=== PATIENT | male | born 1975 | race Two or more races ===

== ENCOUNTER → 2018-06-26 | Outpatient (CLI) | payer MEDICAID | LOC: FIMAGING 16:01 | PROVIDERS: ATTEND Internal Medicine | DX: R07.9 Chest pain, unspecified (principal); F41.9 Anxiety disorder, unspecified; Z87.891 Personal history of nicotine dependence; M41.85 Other forms of scoliosis, thoracolumbar region ==

== ENCOUNTER 2018-07-18 12:58 | Inpatient (IN) | payer MEDICAID, OTHER ==
--- NOTE | 2018-07-18 13:28 | EDPHY ---
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 Denies suicidal or homicidal ideation. Denies self-injurious behavior. Denies burning cutting or similar behavior. PRIMARY CARE PROVIDER: REVIEW OF SYSTEMS: 10 systems reviewed and negative with the exception of the elements mentioned in the history of present illness PAST MEDICAL & SURGICAL HISTORY: Schizophrenia SOCIAL HISTORY: Homeless PHYSICAL EXAM (Prior to examination, patient consented to physical exam, hands were washed and my usual and customary physical exam procedures followed) 1) GENERAL: poorly kept foul smelling, alert and oriented. Appears to be in no acute distress. 2) HEAD: Normocephalic, atraumatic 3) HEENT: Pupils equal, round, reactive to light bilaterally. Sclera anicteric. [ 4) NECK: Full range of motion, no meningeal signs. 5) LUNGS: Clear auscultation bilaterally, no wheezes, no rhonchi, no retractions. 6) HEART: Regular rate and rhythm, no murmur, no heave, no gallop. 7) ABDOMEN: No guarding, no rebound, no focal tenderness, 8) MUSCULOSKELETAL: Moving all extremities, no focal areas of tenderness, no obvious trauma. No peripheral edema or discoloration. 9) BACK: No obvious trauma, no visual or palpable abnormality.] 10) SKIN: No rash, no petechiae. 11) Psychiatric: Patient is oriented X 3, there is no agitation. DIFFERENTIAL DIAGNOSIS: In no particular order including but not limited to suicidal ideation, homicidal ideation, psychosis, lorena, gravely disabled (Loli Decker) Constitutional: Initial Vital Signs Temperature (C) 36.6 C 07/18/18 13:02 Heart Rate 107 H 07/18/18 13:02 Respiratory Rate 18 07/18/18 13:02 Blood Pressure 167/96 H 07/18/18 13:02 O2 Sat (%) 98 07/18/18 13:02 O2 Delivery Mode Room Air Allergies/Adverse Reactions: No Known Allergies Allergy (Unverified 07/18/18 13:08) Medical Decision Making ED Course/Re-evaluation: The patient was evaluated and managed by the physician's water quality assistant. My cosignature indicates that I reviewed the chart and I agree with the findings and plan of care as documented. I am the secondary supervising physician. ( Yoly Aceves) 1:28 p.m.: Patient is on an M1 hold. Will obtain laboratory studies and consult with mental health production expert. I saw this patient independently based on established practice protocols. Care of patient under supervision of secondary supervising physician Dr Aceves. 4:50 p.m.: Patient has been accepted for admission admitting physician Dr. Chopra, 3 [facility]. EMTALA paperwork completed. (Loli Decker) - Data Points Laboratory Results: Laboratory Results 07/18/18 13:15 07/18/18 13:15 07/18/18 07/18/18 07/18/18 13:15 13:15 12:30 WBC 8.34 10^3/uL 10^3/uL (3.80-9.50) RBC 5.92 10^6/uL 10^6/uL (4.40-6.38) Hgb 19.1 g/dL H g/dL (13.7-17.5) Hct 54.1 % H % (40.0-51.0) MCV 91.4 fL fL (81.5-99.8) MCH 32.3 pg pg (27.9-34.1) MCHC 35.3 g/dL g/dL (32.4-36.7) RDW 11.7 % % (11.5-15.2) Plt Count 372 10^3/uL 10^3/uL (150-400) MPV 10.5 fL fL (8.7-11.7) Neut % (Auto) 69.1 % % (39.3-74.2) Lymph % (Auto) 22.4 % % (15.0-45.0) Rogers % (Auto) 7.3 % % (4.5-13.0) Eos % (Auto) 0.4 % L % (0.6-7.6) Baso % (Auto) 0.4 % % (0.3-1.7) Nucleat RBC Rel Count 0.0 % % (0.0-0.2) Absolute Neuts (auto) 5.77 10^3/uL 10^3/uL (1.70-6.50) Absolute Lymphs (auto) 1.87 10^3/uL 10^3/uL (1.00-3.00) Absolute Monos (auto) 0.61 10^3/uL 10^3/uL (0.30-0.80) Absolute Eos (auto) 0.03 10^3/uL 10^3/uL (0.03-0.40) Absolute Basos (auto) 0.03 10^3/uL 10^3/uL (0.02-0.10) Absolute Nucleated RBC 0.00 10^3/uL 10^3/uL (0-0.01) Immature Gran % 0.4 % % (0.0-1.1) Immature Gran # 0.03 10^3/uL 10^3/uL (0.00-0.10) Sodium 141 mEq/L mEq/L (135-145) Potassium 3.7 mEq/L mEq/L (3.3-5.0) Chloride 97 mEq/L mEq/L (97-110) Carbon Dioxide 31 mEq/l mEq/l (22-31) Anion Gap 13 mEq/L mEq/L (8-16) BUN 13 mg/dL mg/dL (7-23) Creatinine 0.8 mg/dL mg/dL (0.7-1.3) Estimated GFR > 60 Glucose 49 mg/dL L mg/dL (70-100) Calcium 9.9 mg/dL mg/dL (8.5-10.4) Salicylates < 1.0 mg/dL L mg/dL (2.0-20.0) Urine Opiates Screen NEGATIVE (NEGATIVE) Acetaminophen < 10 mcg/mL L mcg/mL (10-30) Urine Barbiturates NEGATIVE (NEGATIVE) Ur Phencyclidine Scrn NEGATIVE (NEGATIVE) Ur Amphetamine Screen NEGATIVE (NEGATIVE) U Benzodiazepines Scrn NEGATIVE (NEGATIVE) Urine Cocaine Screen NEGATIVE (NEGATIVE) U Marijuana (THC) Screen NEGATIVE (NEGATIVE) Ethyl Alcohol < 10 mg/dL mg/dL (0-10) Departure - Departure Disposition: [facility] IP Clinical Impression: Schizophrenia Condition: Fair Referrals: Urvashi Soto MD [Primary Care Provider] - As per Instructions
[2018-07-18 13:56] LABS: PLATELET COUNT 372 10^3/uL (150-400)
--- NOTE | 2018-07-18 16:37 | ASMTTCLDSP ---
TLC Discharge Disposition Disposition: Answers: Admit Disposition Notes: Notes: In consultation with [facility] ED physician, Les Whitehead MD and on-call psychiatrist, Joni Chopra MD, both concurred that pt appears to meet 27-65 criteria requiring psychiatric hospitalization as pt appears to be gravely disabled due to a mental illness condition. Was patient given the Answers: Yes Inpatient Behavioral Health Prohibited Belongings List while in the ED? Date Signed: 07/18/2018 04:36 PM Electronically Signed By:Ozzy Farfan
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
[2018-07-18] MEDS ORDERED: MELATONIN 3 MG TAB PO PRN (21:00)
[2018-07-18] MEDS ORDERED: ACETAMINOPHEN 325 MG TAB PO PRN (21:00)
[2018-07-18] MEDS ORDERED: MAGNESIUM HYDROXIDE 30 ML UDCUP PO PRN (21:00)
[2018-07-18] MEDS ORDERED: LORazepam 0.5 MG TAB PO PRN (21:00)
[2018-07-18] MEDS ORDERED: OLANZapine DISINTEGR 5 MG TAB PO PRN (21:00)
[2018-07-18] MEDS ORDERED: MAG HYDROX/AL HYDROX/SIMETH 30 ML UDCUP PO PRN (21:00)
[2018-07-18] MEDS: NICOTINE 21 MG/24 HR PATCH TD SCH (21:29)
[2018-07-19] MEDS: NICOTINE 21 MG/24 HR PATCH TD SCH (08:57)
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
--- NOTE | 2018-07-19 13:07 | ASMTCMCOM ---
CM Note CM Note Notes: Pt. and CC completed MTP, signed and placed in chart. Pt. reports having a court date "in a couple months". Pt. declined to elaborate on why he is going to court. Pt. stated he drinks alcohol "not that frequently", adding it calms him down. Pt. reports smoking THC "pretty frequently, but not everyday". Pt. denied SI, HI, AVH and paranoia. Pt. reports his last hospitalization being 15 years ago at [facility]. Pt. stated he couldn't remember his diagnosis and was unable to name any helpful treatments or medications. Pt. presents as alert, anxious, pressured speech, appearing delayed at times, guarded, and with poor eye contact. Staff report pt. sleeping 9 hours. Pt. rated his SI a 0/10 with RN. Pt.'s M1 hold will on 07/21/18 at 1200. Date Signed: 07/19/2018 01:06 PM Electronically Signed By:Bing Chun
--- NOTE | 2018-07-19 23:51 | BAPA ---
DATE OF SERVICE: 07/19/2018 CHIEF COMPLAINT: "I live alone, I've been feeling sick like I'm dying, pain in my arms, legs, back, stressed...near from exposure to carpal tunnel...like having heart attack...this has been going on for 4 years, worse recently..." HISTORY OF PRESENT ILLNESS: The patient is a 43-year-old male with a history of schizophrenia, brought in to the [facility] emergency department by police on an M1 hold for grave disability. He was found to be in a paranoid delusional state with poor self-care and his been recently homeless. His thought patterns were felt to be tangential and disorganized, but he denied suicidal or homicidal thoughts. He is open with [facility], but has not been compliant with followup. He was reportedly seen on 02/04 for a psychiatric evaluation, prescribed Zyprexa, but did not return for followup. Records also indicate the patient was prescribed Seroquel and gabapentin by Dr. Carver in May 2018, but again apparently has been noncompliant. Apparently , he presented to [facility] requesting to resume medications for anxiety and paranoia , also hallucinations, lacking insight into his reported history of schizophrenia, as he attributed symptoms to excessive use of cannabis, caffeine , and nicotine. It was reported that he is seeking treatment at encouragement by his parents to resume psychotropic medication since more recently his behaviors have resulted in interactions with the legal system and homelessness. On interview, the patient was notably with disorganized thoughts. 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 I've been terrorized and almost killed, almost run over by cars, almost suicidal". 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 He attributed this all to caffeine use, cigarettes 1 pack per day and occasional alcohol use, "but not very much". States he smokes a lot of marijuana but less in the past month since evicted and homeless. He reports not feeling terrorized or harassed here in the hospital. He denied feeling depressed, denied hopeless, helpless, worthless feelings or any suicidality. He reports sleep has been fine, with no decreased need for sleep. Concentration is "acceptable when I'm doing something" but "decreased recently with stress, high temperatures, and homelessness". Thinks he rather has "anger management problems, with angry self-talk...I think my self-talk was causing problems with the police...weird Internet problems or self-talk problems causing physical injury...that may be related to concentration in the car, or weird Internet or carpal tunnel." When asked for clarification, he states, when he is in his car on a long drive, his concentration is affected because he thinks he is being injured in the car by the "weird Internet or carpal tunnel." Physical injuries of chest, arm, leg, and back pains. Then he wondered whether marijuana "may have caused me to be lobotomized by it, or the stress or social isolation." He denies experiencing racing thoughts, but does report having easy irritability. Not sure if experiencing auditory hallucinations because of so many sounds around him and living in setting where there have been many sounds and distractions. Noted his "self-talk" caused problems with the police, admitting experiencing things like license plates communicating with him. Not clarified if this was hallucination or referential thinking. When he drank alcohol, which he noted was infrequent, it did help calm him. Regarding current hospitalization, he said he would not mind something sedating , but also requested a medication that would come in an injectable form like he used to be on, stating his parents told him they would continue to help support him if they knew he was compliant with taking his medication. Therefore, he did request Risperdal or something newer. Apparently recently was charged with harassment. He did not clearly volunteer or endorse auditory hallucinations, but did indicate "angry self-talk" may have caused some problems. PAST PSYCHIATRIC HISTORY: Per records, at age 27, "had drug or unemployment breakdown" which led to him getting into "a lot of trouble, overdose on caffeine , alcohol, nicotine, had a violent incident in a rental unit." This occurred in [place], he was evicted and returned to live with parents and they got him into mental health treatment, possibly hospitalized psychiatrically once in [place]. He has been hospitalized 2-3 times in [place] including [facility] in 2003 and in [place]. He reports being in [facility] for 3 months, worked with Dr. Pritchett and was on court-ordered Risperdal injection, he recalls 37.5 mg. Also had been on Clozaril in the past. Continued on Risperdal injection for approximately 10 years, then about 5 years ago discontinued medications. Has been off medication from around 2012 to 2016, and since then has been prescribed medications but has not been compliant. Has been seen at [facility]. Records note Lana Rogel prescribed Zyprexa 10 mg in 02/04. (Unclear if this was 2016 or a few months ago). Also Dr. Zee Carver on 06/10/2018 prescribed gabapentin 300 mg b.i.d. for anxiety and to curb substance cravings, and Seroquel 200 mg q.h.sd . He has carried a diagnosis of schizophrenia, cannabis use disorder, severe, and tobacco use disorder, mild. PRIOR SAFETY HISTORY: Denied history of suicide attempts, however, was suicidal at age 27 after which he first entered psychiatric treatment. Regarding danger to others, the patient seems to have a history of recent assault charge and history of harassment charges, which seem related to psychiatric decompensation. Also with history of arrest due to harassment charges prior to admission to [facility]. NO KNOWN DRUG ALLERGIES PAST MEDICAL HISTORY: Possibly hypertension. On no medications. Patient denied any history of seizures or traumatic brain injury. Denied history of being a victim of any assault or trauma. He does report several current physical complaints, as noted in history above, but has been seen and cleared by hospitalist prior to admission, and did not appear in physical distress. SUBSTANCE USE HISTORY: Reports excess caffeine use, and nicotine use smoking 1 pack per day cigarettes. Started marijuana use in college at age 21, uses regularly, daily, but less since homeless. Occasional alcohol. In [facility] evaluation, he reported drinking as much as six 32 ounces of caffeine per day. , and also stated alcohol brings him down from caffeine and cigarettes. Cannabis, note, being started at age 21. Denies any other forms of cannabis except smoking. Denied any history of substance use treatment. LEGAL HISTORY: Evicted from his housing about 1 month ago. He reports getting into a fight with his neighbor "while high on coffee" and has upcoming court for assault charge. Also reports in the past he has been arrested for harassment and talked of getting into altercations on [employer] and his place of residence, which he related to excessive tobacco and caffeine use. SOCIAL HISTORY: Per [facility] evaluation, he is from [place] and has 1 brother. Parents are and reside in [place]. He reports attending college at [employer] and initially indicated he did not graduate because of excessive use of cigarettes, nicotine, and marijuana, reporting he failed out. When asked about [facility] records noting he had a degree in biology, he admitted this was true but never worked in the field. 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 Seems this was when stable on medications. His parents have been supportive and have been helping him financially. Has reportedly applied for disability. He has been in [place] for at least 15 years following graduation from college No known drug allergies. MENTAL STATUS EXAM: The patient was male appearing stated age. Cooperative with interview, engaged, polite, sitting throughout interview with normal psychomotor activity. Hair was somewhat disheveled. He had some facial hair. Dressed in hospital gowns. Fair eye contact while talking, but looking down and closing eyes when being asked a question or talked to, as if in deep concentration or to avoid outside distractions to maintain concentration on questions being asked. Speech was rapid, but not pressured. He was interruptible. Speech volume was normal and he was articulate. Mood was "doing better since I was evicted and left that place," presently "happy to have a convalescence." Affect was restricted in range, seeming more perplexed and with mild anxiety as he described his recent stressors and difficulties as noted. Thought processes were disorganized, perseverative, illogical at times, and seeming he was often attempting to make sense of his current predicament. Somatic complaints which seemed of a delusional quality. Inconsistencies in his history seemed more related to disorganized thoughts rather than deliberate. He alluded to having experienced auditory hallucinations in the past and was not quite sure if he still had such experiences or if it was related to a disruptive living setting or excessive caffeine and cigarette use. He also endorsed recently experiencing license plates communicating to him, and paranoia about police cars, fire trucks, loud noises, and feeling tortured daily in his place of residence. He denied any thought insertion or thought withdrawal. Not currently experiencing any ideas of reference, did not appear to be responding to internal stimuli. He denied current auditory and visual hallucinations. He expressed eagerness to start on medication, which came in an injectable form, but was then also somewhat indecisive. Insight was impaired although he recognizes need for treatment. Judgment impaired. Cognition was conversationally intact although not formally tested. He was alert and oriented x3. IMPRESSION: A 43-year-old male with a history of schizophrenia and THC use. It seems he has been declining gradually over the past few years since he has been off injectable psychotropic medication. More recently his symptoms and behaviors have resulted in increased conflicts within the community and increased police encounters resulting in recent legal charges, and eviction and he is now homeless. He seems to have disorganized thoughts and alludes to experiencing hallucinations and referential thinking. Chronic cannabis use and reported excessive caffeine use contributing to exacerbation of his underlying mental illness, disorganized thoughts, paranoia, and apparent somatic delusions.. History indicates a similar presentation prior to his first psychiatric hospitalization 15 years ago which required prolonged hospitalization and court-ordered medications in injectable form, after which he remained stable for many years until 2013 when off medication and with reported gradual decline in functioning since. It seems he presented for mental health treatment at urging of his parents, who have been supporting him and encouraging him to resume psychotropic medications in injectable form to ensure compliance. The patient reports being willing to do this. DIAGNOSES: Schizophrenia, acute exacerbation; cannabis use disorder, severe; tobacco use disorder, unspecified; caffeine use disorder, unspecified. Rule out schizoaffective disorder, rule out substance induced psychosis. Homeless, unemployed, little to no psychosocial supports. PLAN OF TREATMENT: 1. Continue on M1 hold for grave disability. Presently reports willing to stay voluntarily. However, does have a history of treatment noncompliance over past year with attempts to reengage in mental health treatment, also disorganized thoughts would be concerning for his ability to remain in voluntary treatment until stabilized. Would consider placement on short-term certification for these reasons. Presently willing to reengage in mental health treatment due to legal and parental pressures. 2. Discussed medication options with the patient. He does report history of Risperdal Consta 37.5 mg as he recalls for 10+ years and apparently was stable on this. He asked if other injectable options were available for different medications. Briefly reviewed other options including Invega and Abilify. Patient willing to try Abilify and will be started on low dose to avoid risk of side effects of akathisia, 2 mg p.o. daily and then plan increase quickly as tolerated to more therapeutic range and monitor for side effects. We will try to obtain more collateral information from parents and [facility]. 3. Monitor for any objective signs of physical illness, pain. Reports multiple complaints but did not clinically appear in any distress. Also follow blood pressure as noted with hypertension. Unclear if related to stress and caffeine or primary hypertension. Patient also mentions carpal tunnel, RAMON inhibitor, back pain, neck pain, arm and leg pains, chest pains, as related to stress, anxiety, caffeine, police, etc. Will monitor and assess and treat as indicated with hospitalist consult also if needed. 4. Substance use. Continue to educate on risks of substance use, primarily marijuana and its adverse effects on mental health and psychosis, as well as caffeine on anxiety, insomnia, etc. The patient denies any substance cravings at this time. He does express some insight into excessive use and is accepting of a nicotine patch and has p.r.n. lorazepam available. Monitor for any substance withdrawal or cravings. 5. Establish with outpatient treatment following discharge with [facility] for outpatient therapy and medication management. 6. Encourage participation in group therapies and individual and treatment planning sessions. Case Management to assist with disposition options, and housing options, including perhaps discharge to structured treatment facility until more consistently stable before transitioning back into the community if indicated. Parents may also be a resource as they have been supportive in past. Also explore legal issues and charges as his concern about legal issues have been stressful for him. 7. The patient consistently denies any thoughts to harm self or others. Will continue on safety precautions but no indication to continue to implement any suicide or assault precautions at this time. /[id number]/MODL MTDD
--- NOTE | 2018-07-20 08:50 | PDMN ---
Medical Necessity Medical necessity: Pt meets IP criteria per & MYKE B-014-IP; est los > 2mn for eval/tx of acute schizophrenia exacerbation; pt gravely disabled & on M1 hold; admit for further monitoring, safety, med management & stabilization; hx homelessness; per H&P & order 07/19/18
[2018-07-20] MEDS: NICOTINE 21 MG/24 HR PATCH TD SCH ×2 (08:58→13:59)
[2018-07-20] MEDS ORDERED: ARIPiprazole 2 MG TAB PO SCH ×2 (09:00→15:30)
--- NOTE | 2018-07-20 11:38 | SOAPPROG ---
SOAP Progress Note Assessment/Plan: Assessment: 43yo with hx szp and thc, noncompliance with treatment, and exacerbation of sxs resulting in recent homelessness and legal charges 07/20/18 15:18 slept 9.5hr. Note pt more isolative today, remaining in room. Room with w water over bathroom floor, clothes strewn on floor. cooperative, good eye contact, brief responses to questions. seems a bit more guarded. mood "fine" affect restricted. thoughts with goal directed responses. denied current AH. denied SI. Noted in hallway smiling to self with head down as walking to room, ?internal preoccupation. PLAN: Pt states no s/e to low dose Abilify this AM. Accepts offer for increase, even taking another 2mg this afternoon and then increase to 5mg qam start tomorrow. briefly reviewed metabolic and extrapyramidal risks with pt who expressed understanding and willingness to continue with treatment. Still interested in long-acting injectable. Has not allowed FARHAD to parents. Presented to hosp apparently at encouragement of parents who support him financially, and have encouraged the [facility] for compliance, may be a conditional arrangement to continue their support. need to explore this. Informed his M-1 would tomorrow and I am inclined to place on [facility]. Pt reports he was on this at [facility] 15 yrs ago and was there for 3 months. Estimated stay would be about 7-10days, and pt reports he has no problems staying voluntary if his stay here was "that short" (comparing to [place]). Again asks if okay to stay voluntarily. In this case, will defer to primary team tomorrow, also pending collateral from family. Objective: Vital Signs Temp Pulse Resp BP Pulse Ox 36.6 C 76 14 113/67 97 07/20/18 06:00 07/20/18 06:00 07/20/18 06:00 07/20/18 06:00 07/20/18 06:00 - Pending Discharge Pending Discharge Within 24 Hours: No Pending Discharge Within 48 Hours: No ICD10 Worksheet Patient Problems: Problems Problem Status Onset Schizophrenia Acute
[2018-07-21] MEDS: NICOTINE 21 MG/24 HR PATCH TD SCH (08:38)
--- NOTE | 2018-07-21 08:55 | SOAPPROG ---
SOAP Progress Note Assessment/Plan: Assessment: Bipolar Disorder, severe, current lorena, with mood congruent psychotic features. Cannabis Use Disorder, Severe. Non-adherence to medical treatment. Nicotine dependence with withdrawal. Slight improvement noted. (see subjective/ objective note). Patient is not safe to discharge at this time as patient continues to exhibit signs of lorena, and express lorena symptoms. Patient requires continued inpatient care because of current acute lorena, and requires inpatient level of care to stabilize in order to no longer be gravely disabled due to mental illness. Patient could benefit from continued inpatient hospitalization for crisis stabilization, safety, and medication evaluation. Patient could benefit from KAUFFMAN as patient has history of non-adherence to oral medications. KAUFFMAN to be administered on . Plan: (1) Psychotropic medications: After reviewing options, risks, and benefits patient agrees to continue current medications and agrees to increase Abilify to 10 mg po QD and Abilify Maintenna 400 mg IM on . No medication changes at this time as more time is needed to determine ongoing tolerability and efficacy. Plan is to continue to observe patient for response and side effects from medications, and ongoing monitoring and evaluation. (2) Review with patient informed consent and recommendations for psychotropic medication treatment listed below (3) Labs: A1c, liver function, fasting lipid panel (4) Therapy: continue milieu and group therapy (5) Further investigation including gathering information from patients relatives and review of past case records to inform treatment plan. (6) Safety/Wellness plan and follow-up outpatient appointments to be established prior to discharge. Next steps are for patient to meet with manager critical care to plan a safe discharge plan and establish outpatient services for ongoing treatment. (7) Confer with inpatient treatment team regarding treatment plan. (8) Legal status: M1, to sign in when M1 expires (9) Consider discharge on Saturday if patient is in stable condition, safe, and has a safe discharge plan. (10) Substance abuse intervention: Cannabis PSYCHOTROPIC MEDICATION TREATMENT INFORMED CONSENT and RECOMMENDATIONS: Review nature of condition, diagnosis, and prognosis. Review nature and purpose of psychotropic medication treatment. Review type of psychotropic medications being ordered. Review risk and benefits of psychotropic medication treatment. Review probable length of time patient will need to take medications. Review risk and benefits of not undergoing psychotropic medication treatment. Review alternative treatments to psychotropic medications. Review psychotropic medications contraindications, drug-drug interactions, side effects, and importance of reporting any side effects to a psychiatric provider or nurse during inpatient hospitalization, and upon discharge to patients psychiatric outpatient provider, primary care provider, or other health housekeeper child care. Review importance of asking a nurse, psychiatric provider, or primary care provider any questions or problems concerning the psychotropic medications. Verify patient understands the information that has been provided, and understands, accepts, and agrees to psychotropic medications. Review patients safety plan and importance of patient to report to staff while hospitalized if patient is ever a danger to self/others, or unable to care for self, and upon discharge, the importance for patient to contact [facility] or [facility], or go to the nearest emergency room, if patient is ever a danger to self/others, or unable to care for self. Recommend that upon discharge patient establish medication management treatment with a psychiatric provider, establishes routine therapy appointments, and follow-up with primary care provider. Verify patient understands and agrees to these recommendations. 07/21/18 09:00 Subjective: Following up with patient for evaluation of lorena, psychosis, and safety. Patient reports, "Doing well, doing great actually. Yes, here because just think I probably smoke too many cigarettes and drink too much coffee. My parents want me to start a long acting medication, and I am okay with that, I guess. I have been on medications in the past for bipolar." Patient expresses the following psychiatric symptoms racing thoughts, pressured to keep talking. Patient reports taking medications as prescribed, and describes response to medications as good. Patient does not report undesirable side effects from the medications, and agrees to continue current medications. Patient reports appetite as good, and reports eating all meals. Patient describes getting 8 hours of sleep. Patient agrees to Abilify 10 mg po QD and Abilify Maintenna to be administered on . Objective: Vital Signs Temp Pulse Resp BP Pulse Ox 36.7 C 66 16 105/62 96 07/21/18 06:00 07/21/18 06:00 07/21/18 06:00 07/21/18 06:00 07/21/18 06:00 NURSING REPORT: Consulted with nursing for update on patients progress in treatment. Nurses report patient is engaged in treatment, is attending groups, slept 8 hours, expresses the following psychiatric symptoms: pressure to keep talking, racing thoughts; exhibits the following psychiatric symptoms: hypertalkative, hyperactivity, tangential; is eating all meals, is agreeable to medications and taking as prescribed with no report of side effects, with no s/ s of EPS/akathisia, and denies SI/HI, denies A/V hallucinations, and denies delusions. WEARING APPAREL SHAKER UPDATE: establishing discharge plan with [facility] for follow-up after discharge. unit coordinator reports patient's OP psychiatrist had planned to begin Abilify Maintenna 400 mg IM KAUFFMAN prior to patient's decompensation due to non-adherence to oral medications that led to this hospitalization. MSE: The patient is a well-nourished male looking stated chronological age. Attire is appropriate and dress is casual and is neat. Grooming status is appropriate and neat. Ambulation is independent. Gait is normal and coordinated. Posture is normal and relaxed. Eye contact is appropriate, and adequate. Motor activity is appropriate with purposeful, organized, coordinated movements; with no involuntary movements. Attitude is cooperative and friendly. Patient appears distractible and does not relate well to this interviewer. Language production is spontaneous. Rate if pressured and non- stop, rhythm is fast, and volume is loud; amount is hypertalkative. Patient difficult to interrupt and interrupts this ENGINEERING SUPERVISOR during interview. Articulation is clear. Patient reports mood as okay with incongruent and expansive affect. Patients thought process is non-linear and illogical, with loose associations, tangential thought. Associations are loose. Patient does not report suicidal/ homicidal thoughts, ideas, or plans. Patient denies auditory, visual hallucinations. Patient denies delusions. Patient does not appear to be attending to internal stimuli. Patients attention and concentration are poor. Patient is oriented to person, place, time, and situation. Patients insight is poor. Patients judgment is poor. No evidence of gross cognitive dysfunction at any point during the interview. No evidence of apparent dysfunction in recent or remote memory. SUBSTANCE ABUSE BRIEF INTERVENTION: Brief intervention regarding the risks of cannabis abuse is provided to patient with goal to reduce the risk of harm that could result from the continued use of methamphetamine and cannabis, with the general aim to investigate the problem, raise awareness of problem, develop a solution with the patient, recommend a specific change or activity, and motivate the patient toward change. Assess substance abuse behavior and give supportive advice about harm reduction, recommend a reduction in hazardous/at- risk consumption patterns, and facilitate referrals for additional specialized treatment with primary care provider. Intermediate goal is for the patient to quit use and attend NA meetings and OP substance abuse treatment. Intervention focus on intermediate goals to allow for more immediate success in the treatment process to keep the patient motivated. Review following with patient : Cannabis use risks: Short-term use: impaired short-term memory, impaired motor coordination, altered judgement, in high doses paranoia and psychosis. Long-term use addiction, diminished life satisfaction and achievement, symptoms of chronic bronchitis, and increased risk of chronic psychosis disorders if predisposition to such disorders. In withdrawal anger, aggression irritability , anxiety and nervousness, decreased appetite or weight loss, restlessness, and sleep difficulties with strange dreams. - Time Spent With Patient Time Spent With Patient: 15 minutes, met with patient individually. - Pending Discharge Pending Discharge Within 24 Hours: No Pending Discharge Within 48 Hours: No ICD10 Worksheet Patient Problems: Problems Problem Status Onset Schizophrenia Acute
[2018-07-21] MEDS ORDERED: ARIPiprazole 2 MG TAB PO SCH ×2 (09:00)
--- NOTE | 2018-07-21 11:30 | ASMTCMCOM ---
CM Note CM Note Notes: Pt. reports feeling "good". Pt. reports sleeping "okay, stressed out". Pt. reports eating well and not attending groups. Pt. stated he has not attended groups because "want to spend my time sleeping". Pt. reports no issues with his current medications. Pt. stated he has court because he got in a fight with his neighbor and was arrested. Pt. did not state what he has been charged with. Pt. reports he was renting his condo. Pt. stated he was suppose to get an Abilify shot with Dr. Carver but didn't attend the appointment. Pt. reports wanting the Abilify shot now and is willing to get follow-up shots. Pt. stated he is willing to continue seeing Dr. Carver. Pt. stated his parents are the ones pushing for pt to get the shot and have been "harassing me". Pt. declined to allow CC to speak to his parents. Pt. reports not taking his medications in a while, but stated leading a healthy lifestyle has been the best help for him. Pt. denied SI, HI, AVH and paranoia. CC gave pt. QuitLine card and will call later with pt. Pt. presents as alert, anxious, talkative, rambling, pressured speech, and staring at CC at times. Staff report pt. sleeping 8.5 hours and being medication compliant. Date Signed: 07/21/2018 11:29 AM Electronically Signed By:Bing Chun
--- NOTE | 2018-07-21 12:32 | ASMTBHFAM ---
Notes Note: Notes: CC spoke with pt's mom, Scarlet ([phone]) MO stated pt. is first off homeless due to being evicted [place] a condo [place] owned and later an apartment rented by [facility]. MOC stated she is unwilling to rent another place for pt. MOC stated she is willing to help, but pt. will need to take his medications. MOC stated pt. did very well when on the Abilify shot, adding pt. stated the shot didn't bother him. MOC stated pt. is "very, very mentally ill". MOC stated pt. believes there are people, the government and the police are all out to get him. MOC stated pt. did do well for many years while on medication and was able to get a job, house and car. MOC stated things changed when pt. lost his insurance. MOC stated pt has been struggling for "20 years. We have run out of time and money to help him". MO stated pt. was arrested and had court last or Saturday for assaulting some neighbors in December2017. MOC stated pt. doesn't remember the event due to being drunk. MO stated pt's "tipping point" was the legalization of marijuana and when pt. got his THC card. Date Signed: 07/21/2018 12:32 PM Electronically Signed By:Bing Chun
[2018-07-21] MEDS: PATCH REMOVAL 1 EA PATCH TD SCH (20:41)
--- NOTE | 2018-07-22 07:34 | ASMTTLCEVL ---
TLC Evaluation - Basic Information Evaluation Start Date and 07/18/2018 04:00 PM Time Hospital Status Answers: M1 Hold 72-hr M1 Hold Start Date 07/18/2018 12:00 PM and Time Patient statement Notes: I live alone, Shabnam been feeling sick like Im dying, pain in my arms, legs, back. Stressed near from exposure to carpal tunnellike having heart attackthis has been going on for 4 years, worse recently. Narrative Notes: The following information is based upon [facility] notes by [facility] psychiatrist, Rachell Carver MD, conducted on 07/18/18 and psychiatric assessment by Dr. Jasmine Shetty: Pt is a 43 yo, single, homeless, male with history of schizophrenia and cannabis use disorder, severe, brought to [facility] ED by ambulance on M1 hold initiated by [facility] psychiatrist, Rachell Carver MD for paranoid delusions, poor self-care and non-adherence to mental health treatment and is gravely disabled due to schizophrenia. Pt denied suicidal or homicidal ideation. His thought patterns were felt to be tangential and disorganized. He was reportedly seen in January 2017 for a psychiatric evaluation, prescribed Zyprexa, but did not return for follow up. In May 2018, he was prescribed Seroquel and Gabapentin by Dr. Carver, but again apparently has been noncompliant. Apparently, he presented to [facility] requesting to resume medications for anxiety and paranoia and hallucinations, lacking insight into his reported history of schizophrenia and attributed his symptoms to excessive use of cannabis, caffeine, and nicotine. He was reportedly seeking treatment by is parent to resume psychotropic medication since more recently his behaviors have resulted in interactions with the legal system and homelessness. Past history, at age 27, he had drug or unemployment breakdown which led him to getting into a lot of trouble, overdose on caffeine, alcohol, nicotine, had a violent incident in a rental unit which occurred in [place]. He was evicted and returned to live with parents and they got him into mental health treatment. Diagnosis History Notes: Schizophrenia and cannabis use disorder, severe. Prior suicide attempts Notes: Pt denied past suicide attempts, however, was suicidal at age 27 after which he first entered psychiatric treatment. Prior hospitalizations Notes: He was possibly hospitalized psychiatrically one time in [place]. He has been hospitalized 2-3 times in [place], including [facility] in 2003 and at [facility] ([facility]). He was at [facility] for 3 months, worked with Dr. Pritchett and was on court-ordered Risperdal injection, he recalls 37.5 mg. He had also been on Clozaril in the past. He continued on Risperdal injection for approximately 10 years, then about 5 years ago discontinued medications. He has been off medication from around 2012 to 2017, and since then has been prescribed medications but has not been compliant. Treatment Responses Notes: Pt has a history of medication noncompliance. History of violence Notes: History of recent assault charges and history of harassment charges precipitating [facility] admissions. He was evicted from housing about 1 month ago after getting into a fight with his neighbor while high on coffee and has upcoming court for assault charge. He also talked of getting into altercations on [address] [employer] and his place of residence, which he related to excessive tobacco and caffeine use. Therapist: Lana Rogel - [facility] Psychiatrist: Rachell Carver MD - P Medications (name, dosage, route, freq uency) Notes: Zyprexa 10 mg in January 2017. Gabapentin 300 mg bid for anxiety and to curb substance cravings, and Seroquel 200 mg po hs. Allergies/Reaction Notes: NKDA. Sleep Notes: Decreased. Appetite Notes: Decreased. Medical/Surgical history Notes: Possibly hypertension. Substance use history (frequency, intensity, his tory, duration) Notes: Pt reported excessive caffeine use, and nicotine use, smoking 1 pack per day cigarettes. He started marijuana use in college at age 21, uses regularly, daily, but less since homeless. He reported occasional alcohol use. He reported drinking as much as six 32 ounces of caffeine per day and also stated alcohol brings him down from caffeine and cigarettes. Family composition Notes: He has one brother. Parents are and resided in [place], [place]. Need for family Answers: No participation in patient's care Family psychiatric/substance abuse history Notes: None reported. Developmental history Notes: Pt is from [place]. He denied any childhood history of TBIs, LOC or concussions. Pt denied any childhood history of physical, emotional or sexual abuse/trauma. Abuse concerns Answers: None Marital status/children Notes: Pt is single, never , no dependents. Living situation Notes: He has been in [place] for at least 15 years following graduation from college. He was evicted from housing about 1 month ago after getting into a fight with his neighbor while high on coffee. Sexual history/orientation Notes: Not active. Heterosexual. Peer support/family strengths Notes: Parents provide financial support to pt. Parents reside in [place], [place]. Education level/history Notes: He attended [employer] and initially indicated he did not graduate because of excessive use of cigarettes, nicotine, and marijuana, reporting he failed out. When asked about [facility] records noting he had a degree in biology, he admitted this was true but never worked in the field. 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 His parents are supportive and have been helping him financially. He has reportedly applied for disability. Notes: None. Legal Notes: History of recent assault charges and history of harassment charges precipitating [facility] admissions. He was evicted from housing about 1 month ago after getting into a fight with his neighbor while high on coffee and has upcoming court for assault charge. He also talked of getting into altercations on [address] [employer] and his place of residence, which he related to excessive tobacco and caffeine use. Oriental Orthodox/Spiritual Notes: None reported which would impact treatment. Leisure Notes: None reported. Collateral Notes: Per [facility] records. Patient's strengths Answers: Supportive Family (Please select at least TWO strengths): Willingness TLC Evaluation - Mental Status Exam Appearance: Answers: Appropriate Unclean Unkempt Disheveled Eye Contact: Answers: Intermittent Mood: Answers: Euthymic Affect: Answers: Blunted Constricted Guarded Indifferent Behavior: Answers: Cooperative Guarded Talkative Speech: Answers: Illogical Coherent Circumstantial Loose Associations Thought Process: Answers: Disorganized Oriented Alert Circumstantial Loose Associations Tangential Insight: Answers: Poor Judgement: Answers: Fair Depression Answers: Psychomotor Retardation Signs/Symptoms: Hallucinations: Answers: None Current Stage of Change Answers: Precontemplation Pt reported to have Answers: No suicidal/self-injuring ideation/behavior? Pt reported to be making Answers: No suicidal/self-injuring threats? Pt reported to have Answers: No aggression/assault ideation/behavior? Pt reported to be making Answers: No aggression/assault threats? Pt exhibits inability to Answers: Yes care for self/grave disability? Ideation/behavior is Answers: Yes chronic? Patient has a specific Answers: No plan? Pt has access to means to Answers: No execute the plan? Ideation involves Answers: No serious/lethal intent? Ideation has Answers: No delusional/hallucinatory content? History of Answers: No suicidal/self-injuring ideation, behavior, or threats? History of Answers: Yes aggressive/assaultive ideation, behavior, or threats? History of serious Answers: No physical harm to self/others while in treatment setting? TLC Evaluation - Suicide/Homicide Risk Suicide Risk Factors: Answers: < 20 or > 40 Years of Age Alcohol/Heavy Drug Use Inadequate Social Support Intoxication Lack of Oriental Orthodox Support Lack of Social Support Lack/Loss of Employment Legal Difficulties Psychotic Disorder Schizophrenia Single Unstable Living Situation Homicide/violence risk Answers: Heavy Drug Use factors: Current Suicidal Answers: No Ideation? Current Suicidal Ideation Answers: No in the Past 48 Hours? Current Suicidal Ideation Answers: No in the Past Month? Current Suicidal Answers: No Ideation, Worst Ever? Suicide Internal Answers: Ean with Stress Protective Factors: Suicide External Answers: None Protective Factors: Ranking of patient's Answers: Low suicidal risk: Ranking of patient's Answers: Moderate homicidal risk: TLC Evaluation - Wrap-up AXIS I Diagnosis (include DSM-V and ICD-10 codes), must also be entered in [employer], which is the source of truth. Notes: Schizophrenia 295.90 (F20.9) Cannabis Use Disorder, severe 304.30 (F12.20) In consultation with [facility] ED provider, DOM Hunt, and on-call psychiatrist, Joni Chopra MD, both concurred that pt appears to meet 27-65 criteria requiring psychiatric hospitalization as pt appears to be gravely disabled due to a mental illness condition. Pt was given the 3N prohibited belongings list while in the ED. Evaluation End Date and 07/18/2018 05:30 PM Time (HH:MM): Date Signed: 07/22/2018 07:33 AM Electronically Signed By:Harry Bravo
--- NOTE | 2018-07-22 08:53 | SOAPPROG ---
SOAP Progress Note Assessment/Plan: Assessment: Bipolar Disorder, severe, current lorena, with mood congruent psychotic features. Cannabis Use Disorder, Severe. Non-adherence to medical treatment. Nicotine dependence with withdrawal. Slight improvement noted. (see subjective/ objective note). Patient is not safe to discharge at this time as patient continues to exhibit signs of lorena, and express lorena symptoms. Patient requires continued inpatient care because of current acute lorena, and requires inpatient level of care to stabilize in order to no longer be gravely disabled due to mental illness. Patient could benefit from continued inpatient hospitalization for crisis stabilization, safety, and medication evaluation. Patient could benefit from KAUFFMAN as patient has history of non-adherence to oral medications. KAUFFMAN to be administered on . Plan: (1) Psychotropic medications: After reviewing options, risks, and benefits patient agrees to continue current medications and agrees to Abilify Maintenna 400 mg IM on . No medication changes at this time as more time is needed to determine ongoing tolerability and efficacy. Plan is to continue to observe patient for response and side effects from medications, and ongoing monitoring and evaluation. (2) Review with patient informed consent and recommendations for psychotropic medication treatment listed below (3) Labs: no additional labs at this time (4) Therapy: continue milieu and group therapy (5) Further investigation including gathering information from patients relatives and review of past case records to inform treatment plan. (6) Safety/Wellness plan and follow-up outpatient appointments to be established prior to discharge. Next steps are for patient to meet with resident care aide to plan a safe discharge plan and establish outpatient services for ongoing treatment. (7) Confer with inpatient treatment team regarding treatment plan. (8) Legal status: M1, to sign in voluntary when M1 expires (9) Consider discharge on Saturday if patient is in stable condition, safe, and has a safe discharge plan. (10) Substance abuse intervention: cannabis PSYCHOTROPIC MEDICATION TREATMENT INFORMED CONSENT and RECOMMENDATIONS: Review nature of condition, diagnosis, and prognosis. Review nature and purpose of psychotropic medication treatment. Review type of psychotropic medications being ordered. Review risk and benefits of psychotropic medication treatment. Review probable length of time patient will need to take medications. Review risk and benefits of not undergoing psychotropic medication treatment. Review alternative treatments to psychotropic medications. Review psychotropic medications contraindications, drug-drug interactions, side effects, and importance of reporting any side effects to a psychiatric provider or nurse during inpatient hospitalization, and upon discharge to patients psychiatric outpatient provider, primary care provider, or other health respiratory care faculty. Review importance of asking a nurse, psychiatric provider, or primary care provider any questions or problems concerning the psychotropic medications. Verify patient understands the information that has been provided, and understands, accepts, and agrees to psychotropic medications. Review patients safety plan and importance of patient to report to staff while hospitalized if patient is ever a danger to self/others, or unable to care for self, and upon discharge, the importance for patient to contact [facility] or [facility], or go to the nearest emergency room, if patient is ever a danger to self/others, or unable to care for self. Recommend that upon discharge patient establish medication management treatment with a psychiatric provider, establishes routine therapy appointments, and follow-up with primary care provider. Verify patient understands and agrees to these recommendations. 07/22/18 08:52 Subjective: Following up with patient for evaluation of lorena, psychosis, and safety. Patient reports, "Doing good." Patient expresses the following psychiatric symptoms racing thoughts. Patient reports taking medications as prescribed, and describes response to medications as good. Patient does not report undesirable side effects from the medications, and agrees to continue current medications. Patient reports appetite as good, and reports eating all meals. Patient describes getting 8 hours of sleep. Patient agrees to Abilify 10 mg po QD and Abilify Maintenna 400 mg IM to be administered on . Patient expresses history of non-adherence to oral medications and agrees to plan to start KAUFFMAN to reduce risk of decompensation due to not taking oral medications as prescribed. Objective: Vital Signs Temp Pulse Resp BP Pulse Ox 36.5 C 57 L 16 115/53 L 96 07/22/18 06:00 07/22/18 06:00 07/22/18 06:00 07/22/18 06:00 07/22/18 06:00 NURSING REPORT: Consulted with nursing for update on patients progress in treatment. Nurses report patient is engaged in treatment, is attending groups, slept 10 hours, expresses the following psychiatric symptoms: pressure to keep talking, racing thoughts; exhibits the following psychiatric symptoms: hypertalkative, hyperactivity, tangential; is eating all meals, is agreeable to medications and taking as prescribed with no report of side effects, with no s/ s of EPS/akathisia, and denies SI/HI, denies A/V hallucinations, and denies delusions. PHOTOGRAPHER MOTION PICTURE UPDATE: establishing discharge plan with [facility] for follow-up after discharge MSE: The patient is a well-nourished male looking stated chronological age. Attire is appropriate and dress is casual and is neat. Grooming status is appropriate and neat. Ambulation is independent. Gait is normal and coordinated. Posture is normal and relaxed. Eye contact is appropriate, and adequate. Motor activity is appropriate with purposeful, organized, coordinated movements; with no involuntary movements. Attitude is cooperative and friendly. Patient appears distractible and does not relate well to this interviewer. Language production is spontaneous. Rate is pressured and non- stop, rhythm is fast, and volume is loud; amount is hypertalkative. Patient difficult to interrupt and often interrupts this ASSET PROTECTION GREETER during interview. Articulation is clear. Patient reports mood as okay with incongruent and expansive affect. Patients thought process is non-linear and illogical, with loose associations, tangential thought. Associations are loose. Patient does not report suicidal/homicidal thoughts, ideas, or plans. Patient denies auditory, visual hallucinations. Patient denies delusions. Patient does not appear to be attending to internal stimuli. Patients attention and concentration are poor. Patient is oriented to person, place, time, and situation. Patients insight is poor. Patients judgment is poor. No evidence of gross cognitive dysfunction at any point during the interview. No evidence of apparent dysfunction in recent or remote memory. COGNITIVE FUNCTION: Retention / Recall: repeat back these numbers: 5 1 5 0 3 / 9 6 8 3 6 4 2 - recall without difficulty Abstractions: What does the statement Rolling stones gather no sexton mean to you ? "Moving on things a lot you don't become to boring or lazy." How is an airplane similar to a bird? "Both fly" Memory: Remember these 3 items, ask to repeat back: Pin, Car, Duck. - recall after 3 minutes without difficulty Judgement: If you were in a restaurant and heard a fire alarm go off, what would you do? - "exit at the emergency exit" Orientation: x4 Calculations: 3 x 7 Count backwards by 3 or 7 starting from 100 - both without difficulty Knowledge: adequate for level of education SUBSTANCE ABUSE BRIEF INTERVENTION: Brief intervention regarding the risks of cannabis abuse is provided to patient with goal to reduce the risk of harm that could result from the continued use of methamphetamine and cannabis, with the general aim to investigate the problem, raise awareness of problem, develop a solution with the patient, recommend a specific change or activity, and motivate the patient toward change. Assess substance abuse behavior and give supportive advice about harm reduction, recommend a reduction in hazardous/at- risk consumption patterns, and facilitate referrals for additional specialized treatment with rn primary care. Intermediate goal is for the patient to quit use and attend NA meetings and OP substance abuse treatment. Intervention focus on intermediate goals to allow for more immediate success in the treatment process to keep the patient motivated. Review following with patient : Cannabis use risks: Short-term use: impaired short-term memory, impaired motor coordination, altered judgement, in high doses paranoia and psychosis. Long-term use addiction, diminished life satisfaction and achievement, symptoms of chronic bronchitis, and increased risk of chronic psychosis disorders if predisposition to such disorders. In withdrawal anger, aggression irritability , anxiety and nervousness, decreased appetite or weight loss, restlessness, and sleep difficulties with strange dreams. - Time Spent With Patient Time Spent With Patient: 15 minutes, met with patient individually. - Pending Discharge Pending Discharge Within 24 Hours: No Pending Discharge Within 48 Hours: No ICD10 Worksheet Patient Problems: Problems Problem Status Onset Cannabis use disorder, severe, dependence Acute Nicotine dependence with withdrawal Acute Non-adherence to medical treatment Acute Severe bipolar disorder with psychotic features, mood-congruent Acute
[2018-07-22] MEDS: ARIPiprazole 10 MG TAB PO SCH (09:48)
[2018-07-22] MEDS: NICOTINE 21 MG/24 HR PATCH TD SCH (10:42)
--- NOTE | 2018-07-22 12:56 | ASMTCMCOM ---
CM Note CM Note Notes: Pt. reports feeling "pretty good". Pt. stated he "slept pretty good". Pt. reports eating well. Pt. stated he is attending some groups, and is going to try to attend more today. Pt. reports no issues with his current medications. Pt. and CC called [facility] to assist pt. in quitting smoking. Pt. denied SI, HI, AVH and paranoia. Pt. presents as alert, nervous, guarded, constricted, poor eye contact, and at time ridged in his movements. Staff report pt. sleeping 13 hours, being medication complaint, and schedule for an Abilify shot on . Date Signed: 07/22/2018 12:20 PM Electronically Signed By:Bing Chun
[2018-07-22] MEDS: PATCH REMOVAL 1 EA PATCH TD SCH (19:21)
--- NOTE | 2018-07-23 06:44 | SOAPPROG ---
SOAP Progress Note Assessment/Plan: Assessment: Bipolar Disorder, severe, current lorena, with mood congruent psychotic features. Cannabis Use Disorder, Severe. Non-adherence to medical treatment. Nicotine dependence with withdrawal. Slight improvement noted; notably improved sleep (see subjective/objective note). Patient is not safe to discharge at this time as patient continues to exhibit signs of lorena, and express lorena symptoms. Patient requires continued inpatient care because of current acute lorena, and requires inpatient level of care to stabilize in order to no longer be gravely disabled due to mental illness. Patient could benefit from continued inpatient hospitalization for crisis stabilization, safety, and medication evaluation. Patient could benefit from KAUFFMAN as patient has history of non-adherence to oral medications. KAUFFMAN to be administered on . Plan: (1) Psychotropic medications: After reviewing options, risks, and benefits patient agrees to continue current medications and agrees to Abilify Maintenna 400 mg IM on . No medication changes at this time as more time is needed to determine ongoing tolerability and efficacy. Plan is to continue to observe patient for response and side effects from medications, and ongoing monitoring and evaluation. (2) Review with patient informed consent and recommendations for psychotropic medication treatment listed below (3) Labs: no additional labs at this time (4) Therapy: continue milieu and group therapy (5) Further investigation including gathering information from patients relatives and review of past case records to inform treatment plan. (6) Safety/Wellness plan and follow-up outpatient appointments to be established prior to discharge. Next steps are for patient to meet with resident care provider to plan a safe discharge plan and establish outpatient services for ongoing treatment. (7) Confer with inpatient treatment team regarding treatment plan. (8) Legal status: voluntary (9) Consider discharge on Saturday if patient is in stable condition, safe, and has a safe discharge plan. PSYCHOTROPIC MEDICATION TREATMENT INFORMED CONSENT and RECOMMENDATIONS: Review nature of condition, diagnosis, and prognosis. Review nature and purpose of psychotropic medication treatment. Review type of psychotropic medications being ordered. Review risk and benefits of psychotropic medication treatment. Review probable length of time patient will need to take medications. Review risk and benefits of not undergoing psychotropic medication treatment. Review alternative treatments to psychotropic medications. Review psychotropic medications contraindications, drug-drug interactions, side effects, and importance of reporting any side effects to a psychiatric provider or nurse during inpatient hospitalization, and upon discharge to patients psychiatric outpatient provider, primary care provider, or other health manager primary care. Review importance of asking a nurse, psychiatric provider, or primary care provider any questions or problems concerning the psychotropic medications. Verify patient understands the information that has been provided, and understands, accepts, and agrees to psychotropic medications. Review patients safety plan and importance of patient to report to staff while hospitalized if patient is ever a danger to self/others, or unable to care for self, and upon discharge, the importance for patient to contact [facility] or [facility], or go to the nearest emergency room, if patient is ever a danger to self/others, or unable to care for self. Recommend that upon discharge patient establish medication management treatment with a psychiatric provider, establishes routine therapy appointments, and follow-up with primary care provider. Verify patient understands and agrees to these recommendations. 07/23/18 06:42 Subjective: Following up with patient for evaluation of lorena, psychosis, and safety. Patient reports, "Doing well, slept better last night." Patient expresses the following psychiatric symptoms racing thoughts. Patient reports taking medications as prescribed, and describes response to medications as "good." Patient does not report undesirable side effects from the medications, and agrees to continue current medications. Patient reports appetite as good, and reports eating all meals. Patient describes getting 8 hours of sleep. Patient agrees to continue Abilify 10 mg po QD and Abilify Maintenna 400 mg IM to be administered on . Objective: Vital Signs Temp Pulse Resp BP Pulse Ox 36.9 C 70 14 113/57 L 94 07/23/18 06:00 07/23/18 06:00 07/23/18 06:00 07/23/18 06:00 07/23/18 06:00 NURSING REPORT: Consulted with nursing for update on patients progress in treatment. Nurses report patient is engaged in treatment, is attending groups, slept 8 hours, expresses the following psychiatric symptoms: pressure to keep talking, racing thoughts; exhibits the following psychiatric symptoms: hypertalkative, hyperactivity, tangential; is eating all meals, is agreeable to medications and taking as prescribed with no report of side effects, with no s/ s of EPS/akathisia, and denies SI/HI, denies A/V hallucinations, and denies delusions. CLOCK ASSEMBLER UPDATE: establishing discharge plan with [facility] for follow-up after discharge MSE: The patient is a well-nourished male looking stated chronological age. Attire is appropriate and dress is casual and is neat. Grooming status is appropriate and neat. Ambulation is independent. Gait is normal and coordinated. Posture is normal and relaxed. Eye contact is appropriate, and adequate. Motor activity is appropriate with purposeful, organized, coordinated movements; with no involuntary movements. Attitude is cooperative and friendly. Patient appears distractible and does not relate well to this interviewer. Language production is spontaneous. Rate if pressured and non- stop, rhythm is fast, and volume is loud; amount is hypertalkative. Patient difficult to interrupt and interrupts this GARMENT FINISHER during interview. Articulation is clear. Patient reports mood as okay with incongruent and expansive affect. Patients thought process is non-linear and illogical, with loose associations, tangential thought. Associations are loose. Patient does not report suicidal/ homicidal thoughts, ideas, or plans. Patient denies auditory, visual hallucinations. Patient denies delusions. Patient does not appear to be attending to internal stimuli. Patients attention and concentration are poor. Patient is oriented to person, place, time, and situation. Patients insight is poor. Patients judgment is poor. No evidence of gross cognitive dysfunction at any point during the interview. No evidence of apparent dysfunction in recent or remote memory. SUBSTANCE ABUSE BRIEF INTERVENTION: Brief intervention regarding the risks of cannabis abuse is provided to patient with goal to reduce the risk of harm that could result from the continued use of methamphetamine and cannabis, with the general aim to investigate the problem, raise awareness of problem, develop a solution with the patient, recommend a specific change or activity, and motivate the patient toward change. Assess substance abuse behavior and give supportive advice about harm reduction, recommend a reduction in hazardous/at- risk consumption patterns, and facilitate referrals for additional specialized treatment with rn coronary care unit. Intermediate goal is for the patient to quit use and attend NA meetings and OP substance abuse treatment. Intervention focus on intermediate goals to allow for more immediate success in the treatment process to keep the patient motivated. Review following with patient : Cannabis use risks: Short-term use: impaired short-term memory, impaired motor coordination, altered judgement, in high doses paranoia and psychosis. Long-term use addiction, diminished life satisfaction and achievement, symptoms of chronic bronchitis, and increased risk of chronic psychosis disorders if predisposition to such disorders. In withdrawal anger, aggression irritability , anxiety and nervousness, decreased appetite or weight loss, restlessness, and sleep difficulties with strange dreams. - Time Spent With Patient Time Spent With Patient: 15 minutes, met with patient individually. - Pending Discharge Pending Discharge Within 24 Hours: No Pending Discharge Within 48 Hours: Yes Pending Discharge Date: 07/25/18 Pending Discharge Time: 11:00 ICD10 Worksheet Patient Problems: Problems Problem Status Onset Cannabis use disorder, severe, dependence Acute Nicotine dependence with withdrawal Acute Non-adherence to medical treatment Acute Severe bipolar disorder with psychotic features, mood-congruent Acute
[2018-07-23] MEDS: ARIPiprazole 10 MG TAB PO SCH (08:24)
[2018-07-23] MEDS: NICOTINE 21 MG/24 HR PATCH TD SCH (08:26)
[2018-07-23] MEDS ORDERED: PALIPERIDONE 3 MG TAB.ER PO ONE (12:42)
[2018-07-23] MEDS ORDERED: PALIPERIDONE 9 MG TAB.ER PO SCH (12:42)
--- NOTE | 2018-07-23 15:46 | ASMTCMCOM ---
CM Note CM Note Notes: Client will be put on a different KAUFFMAN, per provider based off of his out-side providers knowledge of the client, etc. Also, client isolates at times and would not speak to this assembly instructions writer today.* Date Signed: 07/23/2018 03:42 PM Electronically Signed By:Sanford Ortiz
[2018-07-23] MEDS: PATCH REMOVAL 1 EA PATCH TD SCH (18:54)
[2018-07-24] MEDS ORDERED: ARIPIPRAZOLE (ABILIFY MAINTENA) 400 MG VIAL IM ONE ×2 (06:00→09:00)
--- NOTE | 2018-07-24 06:41 | SOAPPROG ---
SOAP Progress Note Assessment/Plan: Assessment: Schizophrenia. Cannabis Use Disorder, Severe. Non-adherence to medical treatment. Nicotine dependence with withdrawal. R/O Bipolar Disorder, severe, current lorena, with mood congruent psychotic features. Slight improvement noted ; notably improved sleep (see subjective/objective note). After further observation, patient is not showing signs of lorena no expressing symptoms of lorena, and presents with s/s indicative of schizophrenia. Change working dx to schizophrenia and treat accordingly. OP psychiatrist reports history of schizophrenia. Patient is not safe to discharge at this time as patient continues to exhibit signs of psychosis, and express psychosis symptoms. Patient requires continued inpatient care because of current acute psychosis, and requires inpatient level of care to stabilize in order to no longer be gravely disabled due to mental illness. Patient could benefit from continued inpatient hospitalization for crisis stabilization, safety, and medication evaluation. Patient could benefit from KAUFFMAN as patient has history of non- adherence to oral medications. KAUFFMAN to be administered on Saturday. Plan: (1) Psychotropic medications: After reviewing options, risks, and benefits patient agrees to continue current medications and agrees to KAUFFMAN on Saturday. No medication changes at this time as more time is needed to determine ongoing tolerability and efficacy. Plan is to continue to observe patient for response and side effects from medications, and ongoing monitoring and evaluation. (2) Review with patient informed consent and recommendations for psychotropic medication treatment listed below (3) Labs: no additional labs at this time (4) Therapy: continue milieu and group therapy (5) Further investigation including gathering information from patients relatives and review of past case records to inform treatment plan. (6) Safety/Wellness plan and follow-up outpatient appointments to be established prior to discharge. Next steps are for patient to meet with aged or disabled carer to plan a safe discharge plan and establish outpatient services for ongoing treatment. (7) Confer with inpatient treatment team regarding treatment plan. (8) Legal status: voluntary (9) Consider discharge on Saturday if patient is in stable condition, safe, and has a safe discharge plan. (10) Substance abuse intervention: cannabis PSYCHOTROPIC MEDICATION TREATMENT INFORMED CONSENT and RECOMMENDATIONS: Review nature of condition, diagnosis, and prognosis. Review nature and purpose of psychotropic medication treatment. Review type of psychotropic medications being ordered. Review risk and benefits of psychotropic medication treatment. Review probable length of time patient will need to take medications. Review risk and benefits of not undergoing psychotropic medication treatment. Review alternative treatments to psychotropic medications. Review psychotropic medications contraindications, drug-drug interactions, side effects, and importance of reporting any side effects to a psychiatric provider or nurse during inpatient hospitalization, and upon discharge to patients psychiatric outpatient provider, primary care provider, or other health clinical care leader. Review importance of asking a nurse, psychiatric provider, or primary care provider any questions or problems concerning the psychotropic medications. Verify patient understands the information that has been provided, and understands, accepts, and agrees to psychotropic medications. Review patients safety plan and importance of patient to report to staff while hospitalized if patient is ever a danger to self/others, or unable to care for self, and upon discharge, the importance for patient to contact [facility] or [facility], or go to the nearest emergency room, if patient is ever a danger to self/others, or unable to care for self. Recommend that upon discharge patient establish medication management treatment with a psychiatric provider, establishes routine therapy appointments, and follow-up with primary care provider. Verify patient understands and agrees to these recommendations. 07/24/18 06:43 Subjective: Following up with patient for evaluation of psychosis and safety. Patient reports, "Doing good. Trying to stay out of my room so I do not yell at myself in the mirror, and maybe the medication change will help with that too. God bless or whatever else I said yesterday, you know. Yeah, I think it is going well, yep thanks." Patient expresses the following psychiatric symptoms severe anxiety. Patient denies symptoms of lorena. Patient reports taking medications as prescribed, and describes response to medications as good. Patient does not report undesirable side effects from the medications, and agrees to continue current medications. Patient reports appetite as good, and reports eating all meals. Patient describes getting 10 hours of sleep. Patient agrees to continue Invega 6 mg po QD and agrees to Invega Sustenna KAUFFMAN with first loading dose on Saturday. Objective: Vital Signs Temp Pulse Resp BP Pulse Ox 36.9 C 70 14 113/57 L 94 07/23/18 06:00 07/23/18 06:00 07/23/18 06:00 07/23/18 06:00 07/23/18 06:00 NURSING REPORT: Consulted with nursing for update on patients progress in treatment. Nurses report patient is engaged in treatment, is attending groups, slept 10.5 hours, expresses the following psychiatric symptoms: anxiety; exhibits the following psychiatric symptoms: hypertalkative, disorganized thought process; is eating all meals, is agreeable to medications and taking as prescribed with no report of side effects, with no s/s of EPS/akathisia, and denies SI/HI, denies A/V hallucinations, and denies delusions. BOTTOM HOOP DRIVER UPDATE: establishing discharge plan with [facility] for follow-up after discharge. CONSULT WITH OUTPATIENT PSYCHIATRIST YESTERDAY: Outpatient psychiatrist from [facility] recommended to begin patient on Haldol DEC or Prolixin KAUFFMAN due to history of severe schizophrenia. Reports patient has done well on Risperidal CONSTA in the past, and has a history of non-adherence to oral medications. Communicated to [facility] will begin trial of Invega KAUFFMAN. MSE: The patient is a well-nourished male looking stated chronological age. Attire is appropriate and dress is casual and is neat. Grooming status is appropriate and neat. Ambulation is independent. Gait is normal and coordinated. Posture is normal and relaxed. Eye contact is appropriate, and adequate. Motor activity is appropriate with purposeful, organized, coordinated movements; with no involuntary movements. Attitude is cooperative and friendly. Patient appears distractible and does not relate well to this interviewer. Language production is spontaneous. Rate if pressured and non- stop, rhythm is fast, and volume is loud; amount is hypertalkative. Patient difficult to interrupt and interrupts this BOILER TESTING TECHNICIAN during interview. Articulation is clear. Patient reports mood as okay with incongruent and expansive affect. Patients thought process is disorganized, non-linear, illogical, with loose associations, tangential thought. Associations are loose. Patient does not report suicidal/homicidal thoughts, ideas, or plans. Patient denies auditory, visual hallucinations. Patient denies delusions. Patient does not appear to be attending to internal stimuli. Patients attention and concentration are poor. Patient is oriented to person, place, time, and situation. Patients insight is poor. Patients judgment is poor. No evidence of gross cognitive dysfunction at any point during the interview. No evidence of apparent dysfunction in recent or remote memory. SUBSTANCE ABUSE BRIEF INTERVENTION: Brief intervention regarding the risks of cannabis abuse is provided to patient with goal to reduce the risk of harm that could result from the continued use of methamphetamine and cannabis, with the general aim to investigate the problem, raise awareness of problem, develop a solution with the patient, recommend a specific change or activity, and motivate the patient toward change. Assess substance abuse behavior and give supportive advice about harm reduction, recommend a reduction in hazardous/at- risk consumption patterns, and facilitate referrals for additional specialized treatment with memory care program resident. Intermediate goal is for the patient to quit use and attend NA meetings and OP substance abuse treatment. Intervention focus on intermediate goals to allow for more immediate success in the treatment process to keep the patient motivated. Review following with patient : Cannabis use risks: Short-term use: impaired short-term memory, impaired motor coordination, altered judgement, in high doses paranoia and psychosis. Long-term use addiction, diminished life satisfaction and achievement, symptoms of chronic bronchitis, and increased risk of chronic psychosis disorders if predisposition to such disorders. In withdrawal anger, aggression irritability , anxiety and nervousness, decreased appetite or weight loss, restlessness, and sleep difficulties with strange dreams. Patient responds well to intervention, however, reports he plans to continue cannabis after discharge. Will continue to educate risks. - Time Spent With Patient Time Spent With Patient: 15 minutes, met with patient individually. - Pending Discharge Pending Discharge Within 24 Hours: No Pending Discharge Within 48 Hours: No ICD10 Worksheet Patient Problems: Problems Problem Status Onset Cannabis use disorder, severe, dependence Acute Nicotine dependence with withdrawal Acute Non-adherence to medical treatment Acute Severe bipolar disorder with psychotic features, mood-congruent Acute
[2018-07-24] MEDS: NICOTINE 21 MG/24 HR PATCH TD SCH (08:12)
[2018-07-24] MEDS: PALIPERIDONE 3 MG TAB.ER PO SCH (08:13)
[2018-07-24] MEDS ORDERED: PALIPERIDONE 9 MG TAB.ER PO SCH (09:00)
[2018-07-24] MEDS ORDERED: PALIPERIDONE 3 MG TAB.ER PO ONE (10:54)
[2018-07-24] MEDS: PATCH REMOVAL 1 EA PATCH TD SCH (18:47)
--- NOTE | 2018-07-25 06:46 | SOAPPROG ---
SOAP Progress Note Assessment/Plan: Assessment: Schizophrenia. Cannabis Use Disorder, Severe. Non-adherence to medical treatment. Nicotine dependence with withdrawal. R/O Bipolar Disorder, severe, current lorena, with mood congruent psychotic features. Slight improvement noted ; notably improved sleep, and mentation has improved with switch from Abilify to Invega (see subjective/objective note). After further observation, patient is not showing signs of lorena, and presents with s/s of schizophrenia. Change working dx to schizophrenia and treat accordingly. OP psychiatrist reports history of schizophrenia. Patient is not safe to discharge at this time as patient continues to exhibit signs of psychosis, and express psychosis symptoms. Patient requires continued inpatient care because of current acute psychosis, and requires inpatient level of care to stabilize in order to no longer be gravely disabled due to mental illness. Patient could benefit from continued inpatient hospitalization for crisis stabilization, safety, and medication evaluation. Patient could benefit from KAUFFMAN as patient has history of non-adherence to oral medications. KAUFFMAN to be administered on Saturday with second loading dose on Saturday. Patient to discharge after second loading dose. Plan: (1) Psychotropic medications: After reviewing options, risks, and benefits patient agrees to continue current medications and agrees to KAUFFMAN today with second loading dose on Saturday. Will continue Invega 6 mg po QD for acute stabilization. No medication changes at this time as more time is needed to determine ongoing tolerability and efficacy. Plan is to continue to observe patient for response and side effects from medications, and ongoing monitoring and evaluation. (2) Review with patient informed consent and recommendations for psychotropic medication treatment listed below (3) Labs: no additional labs at this time (4) Therapy: continue milieu and group therapy (5) Further investigation including gathering information from patients relatives and review of past case records to inform treatment plan. (6) Safety/Wellness plan and follow-up outpatient appointments to be established prior to discharge. Next steps are for patient to meet with director of health care marketing to plan a safe discharge plan and establish outpatient services for ongoing treatment. (7) Confer with inpatient treatment team regarding treatment plan. (8) Legal status: voluntary (9) Consider discharge on Saturday or Saturday if patient is in stable condition, safe, and has a safe discharge plan. PSYCHOTROPIC MEDICATION TREATMENT INFORMED CONSENT and RECOMMENDATIONS: Review nature of condition, diagnosis, and prognosis. Review nature and purpose of psychotropic medication treatment. Review type of psychotropic medications being ordered. Review risk and benefits of psychotropic medication treatment. Review probable length of time patient will need to take medications. Review risk and benefits of not undergoing psychotropic medication treatment. Review alternative treatments to psychotropic medications. Review psychotropic medications contraindications, drug-drug interactions, side effects, and importance of reporting any side effects to a psychiatric provider or nurse during inpatient hospitalization, and upon discharge to patients psychiatric outpatient provider, primary care provider, or other health nurse healthcare manager. Review importance of asking a nurse, psychiatric provider, or primary care provider any questions or problems concerning the psychotropic medications. Verify patient understands the information that has been provided, and understands, accepts, and agrees to psychotropic medications. Review patients safety plan and importance of patient to report to staff while hospitalized if patient is ever a danger to self/others, or unable to care for self, and upon discharge, the importance for patient to contact [facility] or [facility], or go to the nearest emergency room, if patient is ever a danger to self/others, or unable to care for self. Recommend that upon discharge patient establish medication management treatment with a psychiatric provider, establishes routine therapy appointments, and follow-up with primary care provider. Verify patient understands and agrees to these recommendations. 07/25/18 06:50 Subjective: Following up with patient for evaluation of psychosis and safety. Patient reports, "Doing well, just needed to reincorporate from being here, was stressed out. Needed to reconstitute myself, under a lot of stress because I live alone or something like that. Yes, everything is going well." Patient expresses the following psychiatric symptoms severe anxiety. Patient reports taking medications as prescribed, and describes response to medications as good. Patient does not report undesirable side effects from the medications, and agrees to continue current medications. Patient reports appetite as good, and reports eating all meals. Patient describes getting 10 hours of sleep. Patient agrees to continue Invega 6 mg po QD and agrees to Invega Sustenna KAUFFMAN with first loading dose today and second loading dose on Saturday. Patient agrees to continued hospitalization until beginning of next week for KAUFFMAN. Objective: Vital Signs Temp Pulse Resp BP Pulse Ox 36.7 C 84 16 103/61 95 07/24/18 06:00 07/24/18 06:00 07/24/18 06:00 07/24/18 06:00 07/24/18 06:00 NURSING REPORT: Consulted with nursing for update on patients progress in treatment. Nurses report patient is engaged in treatment, is attending groups, slept 10 hours, expresses the following psychiatric symptoms: anxiety; exhibits the following psychiatric symptoms: disorganized, illogical, non-linear; is eating all meals, is agreeable to medications and taking as prescribed with no report of side effects, with no s/s of EPS/akathisia, and denies SI/HI, denies A /V hallucinations, and denies delusions. SKI INSTRUCTOR UPDATE: establishing discharge plan with [facility] for follow-up after discharge. MSE: The patient is a well-nourished male looking stated chronological age. Attire is appropriate and dress is casual and is neat. Grooming status is appropriate and neat. Ambulation is independent. Gait is normal and coordinated. Posture is normal and relaxed. Eye contact is appropriate, and adequate. Motor activity is appropriate with purposeful, organized, coordinated movements; with no involuntary movements. Attitude is cooperative and friendly. Patient appears distractible and does not relate well to this interviewer. Language production is spontaneous. Rate if pressured, rhythm is fast, and volume loud. Articulation is clear. Patient reports mood as okay with incongruent and expansive affect. Patients thought process is disorganized , non-linear, illogical, with loose associations, tangential thought. Patient does not report suicidal/homicidal thoughts, ideas, or plans. Patient denies auditory, visual hallucinations. Patient denies delusions. Patient does not appear to be attending to internal stimuli. Patients attention and concentration are poor. Patient is oriented to person, place, time. Orientation to situation is absent. Patients insight is poor. Patients judgment is poor. No evidence of gross cognitive dysfunction at any point during the interview. No evidence of apparent dysfunction in recent or remote memory. SUBSTANCE ABUSE BRIEF INTERVENTION: Brief intervention regarding the risks of cannabis abuse is provided to patient with goal to reduce the risk of harm that could result from the continued use of methamphetamine and cannabis, with the general aim to investigate the problem, raise awareness of problem, develop a solution with the patient, recommend a specific change or activity, and motivate the patient toward change. Assess substance abuse behavior and give supportive advice about harm reduction, recommend a reduction in hazardous/at- risk consumption patterns, and facilitate referrals for additional specialized treatment with pet care attendant. Intermediate goal is for the patient to quit use and attend NA meetings and OP substance abuse treatment. Intervention focus on intermediate goals to allow for more immediate success in the treatment process to keep the patient motivated. Review following with patient : Cannabis use risks: Short-term use: impaired short-term memory, impaired motor coordination, altered judgement, in high doses paranoia and psychosis. Long-term use addiction, diminished life satisfaction and achievement, symptoms of chronic bronchitis, and increased risk of chronic psychosis disorders if predisposition to such disorders. In withdrawal anger, aggression irritability , anxiety and nervousness, decreased appetite or weight loss, restlessness, and sleep difficulties with strange dreams. - Time Spent With Patient Time Spent With Patient: 15 minutes, met with patient individually. - Pending Discharge Pending Discharge Within 24 Hours: No Pending Discharge Within 48 Hours: No ICD10 Worksheet Patient Problems: Problems Problem Status Onset Cannabis use disorder, severe, dependence Acute Nicotine dependence with withdrawal Acute Non-adherence to medical treatment Acute Severe bipolar disorder with psychotic features, mood-congruent Acute
[2018-07-25] MEDS: NICOTINE POLACRILEX 2 MG GUM B PRN ×2 (07:51→16:48)
[2018-07-25] MEDS: PALIPERIDONE 3 MG TAB.ER PO SCH (07:51)
[2018-07-25] MEDS ORDERED: PALIPERIDONE PALMITATE 234 MG/1.5 ML SYR IM ONE (09:00)
--- NOTE | 2018-07-25 12:43 | ASMTCMCOM ---
CM Note CM Note Notes: Ct. was in his room when CC checked in. Ct. just showered and his clothes were scattered on the floor. Ct. reports feeling "pretty good". Ct. stated he is attending some groups. Ct. answers were very short and he did not want to continue engaging in a conversation. Date Signed: 07/25/2018 12:42 PM Electronically Signed By:Palmira Ramirez
[2018-07-25] MEDS: NICOTINE 21 MG/24 HR PATCH TD SCH (13:21)
[2018-07-25] MEDS: PATCH REMOVAL 1 EA PATCH TD SCH (20:39)
[2018-07-26] MEDS: NICOTINE POLACRILEX 2 MG GUM B PRN ×4 (06:55→23:06)
[2018-07-26] MEDS: PALIPERIDONE 3 MG TAB.ER PO SCH (09:08)
[2018-07-26] MEDS: NICOTINE 21 MG/24 HR PATCH TD SCH (09:12)
--- NOTE | 2018-07-26 14:57 | ASMTBHDC ---
Notes Note: Notes: The patient met with this remote mortgage underwriter and the provider; who answered and clarified the patient's questions regarding the prescribed medication. The patient was calm and cooperative. He was oriented and organized in his thought process. [facility] staff reported that the patient seemed preoccupied in the milieu. Date Signed: 07/26/2018 02:56 PM Electronically Signed By:Poly Jimenez
--- NOTE | 2018-07-26 16:30 | SOAPPROG ---
SOAP Progress Note Assessment/Plan: Assessment: Per Jer Smiley's recent note: Assessment: Schizophrenia. Cannabis Use Disorder, Severe. Non-adherence to medical treatment. Nicotine dependence with withdrawal. R/O Bipolar Disorder, severe, current lorena, with mood congruent psychotic features. Slight improvement noted ; notably improved sleep, and mentation has improved with switch from Abilify to Invega (see subjective/objective note). After further observation, patient is not showing signs of lorena, and presents with s/s of schizophrenia. Change working dx to schizophrenia and treat accordingly. OP psychiatrist reports history of schizophrenia. Patient is not safe to discharge at this time as patient continues to exhibit signs of psychosis, and express psychosis symptoms. Patient requires continued inpatient care because of current acute psychosis, and requires inpatient level of care to stabilize in order to no longer be gravely disabled due to mental illness. Patient could benefit from continued inpatient hospitalization for crisis stabilization, safety, and medication evaluation. Patient could benefit from KAUFFMAN as patient has history of non-adherence to oral medications. KAUFFMAN to be administered on Saturday with second loading dose on Saturday. Patient to discharge after second loading dose. Plan: 07/26/18 16:24 1. Patient has agreed to KAUFFMAN Invega Sustenna. He received 1st dose IM on . 2. Patient denies any SE's or physical complaints after IM med administration. He is tolerating PO Invega w/o any adverse effects. 3. Patient plans to f/u with Dr. Carver at [facility] after d/c. 4. Voluntary Subjective: Patient sitting at desk in his room. Interviewed patient with Poly DALEY, chloe. He reports that he did not keep his OP appts with Dr. Carver. She tried to get him back on Risperdal Consta per patient's report, but he did not keep his appointments. Patient has no plan how to maintain compliance when he's on Invega Sustenna. He claims he will go for f/u injections once/month. However , given his prior h/o cannabis dependence and drug use, it seems likely he will continue to use recreational drugs that exacerbate his psychotic sxs and impair his cognition/judgment making it more likely he will not adhere to any treatment plan. This is a risk and concern that must be addressed by his outpatient treatment team at [facility]. The IP team, including the CC and PMHNP, have communicated with Dr. Carver and the [facility] staff to alert them to this risk. Objective: Vital Signs Temp Pulse Resp BP Pulse Ox 36.6 C 83 14 111/63 96 07/26/18 06:00 07/26/18 06:00 07/26/18 06:00 07/26/18 06:00 07/26/18 06:00 MSE: Affect: Flat Mood: "OK" TP: Goal-directed TC: Denies any SI/HI Perception: Denies AH/VH Insight/Judgment: Poor - Time Spent With Patient Time Spent With Patient: 15" - Pending Discharge Pending Discharge Within 24 Hours: No Pending Discharge Within 48 Hours: Yes Pending Discharge Date: 07/28/18 (Possible d/c on Sat, will need to f/u with [facility] ) Pending Discharge Time: 11:00 ICD10 Worksheet Patient Problems: Problems Problem Status Onset Cannabis use disorder, severe, dependence Acute Nicotine dependence with withdrawal Acute Non-adherence to medical treatment Acute Severe bipolar disorder with psychotic features, mood-congruent Acute
[2018-07-26] MEDS: PATCH REMOVAL 1 EA PATCH TD SCH (19:05)
[2018-07-27] MEDS: PALIPERIDONE 3 MG TAB.ER PO SCH (08:41)
[2018-07-27] MEDS: NICOTINE 21 MG/24 HR PATCH TD SCH (08:51)
[2018-07-27] MEDS: NICOTINE POLACRILEX 2 MG GUM B PRN ×3 (08:59→16:56)
--- NOTE | 2018-07-27 14:29 | SOAPPROG ---
SOAP Progress Note Assessment/Plan: Assessment: Per Jer Smiley's recent note: Assessment: Schizophrenia. Cannabis Use Disorder, Severe. Non-adherence to medical treatment. Nicotine dependence with withdrawal. R/O Bipolar Disorder, severe, current lorena, with mood congruent psychotic features. Slight improvement noted ; notably improved sleep, and mentation has improved with switch from Abilify to Invega (see subjective/objective note). After further observation, patient is not showing signs of lorena, and presents with s/s of schizophrenia. Change working dx to schizophrenia and treat accordingly. OP psychiatrist reports history of schizophrenia. Patient is not safe to discharge at this time as patient continues to exhibit signs of psychosis, and express psychosis symptoms. Patient requires continued inpatient care because of current acute psychosis, and requires inpatient level of care to stabilize in order to no longer be gravely disabled due to mental illness. Patient could benefit from continued inpatient hospitalization for crisis stabilization, safety, and medication evaluation. Patient could benefit from KAUFFMAN as patient has history of non-adherence to oral medications. KAUFFMAN to be administered on Saturday with second loading dose on Saturday. Patient to discharge after second loading dose. Plan: 07/26/18 16:24 1. Patient has agreed to KAUFFMAN Invega Sustenna. He received 1st dose IM on . 2. Patient denies any SE's or physical complaints after IM med administration. He is tolerating PO Invega w/o any adverse effects. 3. Patient plans to f/u with Dr. Carver at [facility] after d/c. 4. Voluntary PLAN: 07/27/18 14:26 1. Patient appears to be responding to internal/external stimuli. He was gesturing and talking to himself in dining area. 2. No SE's from PO or IM Invega. No signs of EPS. 3. Next dose of Sustenna IM on 08/01/18. Will need to have appt to receive this 2nd injection at [facility] clinic since he will likely not be in hospital. explained that patient should continue to take PO Invega for another 3 weeks. His OP provider may want him to stay on it longer or come off sooner. Patient said he understood the plan. 4. Voluntary Subjective: Patient denies AH/VH, but staff observed him in dining room talking to himself and gesturing with his hands when no one else was around. He slept 7.5 hrs and ate 100% of meals. He denies any SI/HI. explained that he will need 2nd injection of Invega Sustenna next Saturday (one week after his 1st injection). He will need to f/u at [facility] for this 2nd injection. CC will make an appt. also explained that patient will need to continue to take PO Invega for up to 3 weeks after discharge. He verbalized his understanding and agreed with this plan. Objective: Vital Signs Temp Pulse Resp BP Pulse Ox 36.8 C 86 14 123/56 H 96 07/27/18 06:00 07/27/18 06:00 07/27/18 06:00 07/27/18 06:00 07/27/18 06:00 MSE: Affect: Euthymic Mood: "OK" TP: Goal-directed TC: Denies any SI/HI Perception: Denies AH/VH, but staff noted patient has been responding to IS/ES Insight/Judgment: Poor based on prior h/o nonadherence - Time Spent With Patient Time Spent With Patient: 15" - Pending Discharge Pending Discharge Within 24 Hours: Yes Pending Discharge Date: 07/28/18 (Possible d/c on Mon once f/u appt for 2nd KAUFFMAN is confirmed) Pending Discharge Time: 11:00 ICD10 Worksheet Patient Problems: Problems Problem Status Onset Cannabis use disorder, severe, dependence Acute Nicotine dependence with withdrawal Acute Non-adherence to medical treatment Acute Severe bipolar disorder with psychotic features, mood-congruent Acute
[2018-07-27] MEDS ORDERED: PNEUMOCOCCAL 0.5ML VACCINE VIAL IM ONE (16:21)
[2018-07-27] MEDS: PATCH REMOVAL 1 EA PATCH TD SCH (17:28)
[2018-07-28 06:42] VITALS: BP 119/59
[2018-07-28] MEDS: PALIPERIDONE 3 MG TAB.ER PO SCH (08:23)
--- NOTE | 2018-07-28 08:35 | BDS ---
REASON FOR ADMISSION: From the ED note dated 07/18/2018, the patient arrived at the ED on an M1 hold from [facility] due to paranoid delusions and poor self-care, nonadherence to treatment, and was placed on an M1 hold for grave disability due to underlying mental illness of schizophrenia. The patient denied suicidal or homicidal ideation at time of presentation at the ED. Denied self-injurious behavior. Denied burning, cutting, or similar self- injurious behavior. The patient was admitted involuntarily on an M1 hold due to being gravely disabled due to a mental illness. The patient was admitted for safety crisis stabilization and medication evaluation. ADMITTING DIAGNOSES: 1. Schizophrenia. 2. Cannabis use disorder, severe. 3. Nicotine dependence with withdrawal. 4. Nonadherence to medical treatment. ADMISSION PHYSICAL EXAM: The patient was seen on 07/18/2018, for history and physical for medical clearance for inpatient Behavioral Health stay. The patient was medically cleared for inpatient psychiatric hospitalization and treatment. For further details, please refer to history and physical dated 07/18. ADMISSION LABS: CBC from 07/18/2018, within normal limits except hemoglobin was elevated at 19.1, hematocrit was elevated at 54.1, eosinophils were low at 0.4. BMP from 07/18/2018, was within normal limits except glucose was low at 49. Liver function from 07/21/2018, within normal limits. Hemoglobin A1c from 07/21/2018, was within normal limits at 5.2. Fasting lipid panel from 2017, within normal limits except triglycerides were elevated at 207, and VLDL cholesterol was elevated at 41. Toxicology screen from 07/18/2018, was negative for substances tested and negative for ethyl alcohol. MAJOR PROCEDURES OR TESTS: None. HOSPITAL COURSE: The most prominent symptoms and behaviors while the patient was here were disorganized behavior and disorganized thought process. Treatment target symptoms were acute psychosis. Treatment modalities utilized were milieu and group therapy. Invega 6 mg p.o. daily was started to target acute psychosis symptoms, was tolerated with no report of side effects and with good response. The patient has a long history of medication nonadherence and patient agreed to Invega Sustenna with the first loading dose of 234 mg IM administered on 07/25/2018, and the 2nd loading dose of 156 mg IM was given prior to discharge today. The patient is to continue Invega 6 mg p.o. daily for acute psychosis stabilization and with plan to have medication tapered and discontinued in an outpatient setting once patient completely stabilizes. The patient has improved considerably with no signs of psychiatric symptoms and no psychiatric symptoms expressed at discharge. The patient reports he has improved since admission. States to be in stable condition. Feels safe to discharge and he contracts for safety. Patient's response to treatment was good. There were no adverse or unexpected results of treatment. The patient was safe throughout his stay, active in treatment, attended and engaged in groups, and was appropriate with staff and other patients. The patient met with the treatment team prior to discharge to assess readiness to discharge and reviewed discharge plan. The treatment team consensus is the patient is in stable condition, has a safe discharge plan and is ready to discharge today. CONDITION AT DISCHARGE: Patient is in stable condition and is no longer a danger to self or others, and is not gravely disabled due to mental illness. Patient is no longer in need of inpatient level of care, and can be safely and effectively treated within the community. The patients level of risk at time of discharge is low. MSE: The patient is casually dressed and with good hygiene , and looks stated age. Patient is sitting, posture is upright, and position is relaxed. Patient appears awake, alert, and responds appropriately and reasonably during interview. Patient is engaged, relates well to interviewer, and emotional facial expression is appropriate to situation and changes appropriately with topic. Patient is cooperative, makes comfortable eye contact , and movements are voluntary, deliberate, coordinated, and smooth and even with no inappropriate movements. Patient makes laryngeal sounds effortlessly and shares conversation appropriately; pace of conversation is appropriate, and stream of talking is fluent; articulation is clear and understandable; word choice is effortless and appropriate for education level; completes sentences, occasionally pausing to think; rate and volume are appropriate for interview and setting. Patient reports mood as euthymic. Patients affect is stable with full variable range, congruent with mood, and appropriate to speech and circumstances. Patient has linear and logical thinking, with no loose associations, tangential thought, thought blocking, concrete thinking, or any other signs of formal thought disorder. Patient denies suicidal and homicidal ideation, and denies hallucinations and delusions. Patient appears to be a reliable historian with sound judgement and good insight into current condition. Patient has no apparent dysfunction in recent or remote memory noted , and no evidence of gross cognitive dysfunction noted at any point during the interview. DISCHARGE DIAGNOSES: 1. Schizophrenia. 2. Cannabis use disorder, severe. 3. Nicotine dependence with withdrawal. CURRENT MEDICATIONS: After reviewing options, risks and benefits with the patient, the patient agrees to continue Invega 6 mg p.o. daily. The patient requests prescription for Invega 6 mg p.o. daily at time of discharge. Prescription for 30 days is provided. The prescription is reviewed with the patient at time of discharge to ensure accuracy and patient understanding. DISPOSITION: The patient left hospital independently and voluntarily and plans to stay in a hotel until he can secure a long-term apartment in the [facility]. FOLLOWUP: cosmetic account coordinator reports the appropriate outpatient follow-up services have been established and outpatient appointments have been scheduled. The patient received written instructions with times and dates of outpatient follow-up appointments. The following follow-up recommendations were provided to the patient at discharge: Continue psychotropic medications as prescribed and attend appointments as scheduled. Report any side effects to a psychiatric outpatient provider, a primary care provider, or other health intensive care medicine specialist. Address any questions or problems concerning the psychotropic medications with a psychiatric outpatient provider, a primary care provider, or other health intensive care medicine specialist. Contact [facility] or [facility], or go to the nearest emergency room, if you are ever a danger to yourself/others, or unable to care for yourself. As soon as possible, establish a routine medication management treatment with a psychiatric provider, establish routine therapy appointments, and follow-up with a primary care provider. SUBSTANCE ABUSE BRIEF INTERVENTION: Brief intervention regarding the risks of cannabis abuse is provided to patient with goal to reduce the risk of harm that could result from the continued use of cannabis, with the general aim to investigate the problem, raise awareness of problem, develop a solution with the patient, recommend a specific change or activity, and motivate the patient toward change. Assess substance abuse behavior and give supportive advice about harm reduction, recommend a reduction in hazardous/at-risk consumption patterns, and facilitate referrals for additional specialized treatment with home health care provider. Intermediate goal is for the patient to quit use and attend outpatient substance abuse treatment. Intervention focus on intermediate goals to allow for more immediate success in the treatment process to keep the patient motivated. Review following with patient: Cannabis use risks: Short- term use: impaired short-term memory, impaired motor coordination, altered judgement, in high doses paranoia and psychosis. Long-term use addiction, diminished life satisfaction and achievement, symptoms of chronic bronchitis, and increased risk of chronic psychosis disorders if predisposition to such disorders. In withdrawal anger, aggression irritability, anxiety and nervousness, decreased appetite or weight loss, restlessness, and sleep difficulties with strange dreams. OUTPATIENT SUBSTANCE ABUSE TREATMENT: Patient referred to outpatient provider and treatment for continued treatment related to substance abuse. LEGAL COURSE: The patient was admitted on an M1 hold for involuntary inpatient psychiatric hospitalization. The patient became voluntary during his stay and patient discharged today independently and voluntarily. ATTITUDE AT TIME OF DISCHARGE: The patients attitude was positive at time of discharge, and patient reports looking forward to discharging today. The patient reports he feels safe to discharge, is no longer a danger to himself or others, is in stable condition, and contracts for safety. Patient states he will continue medications as prescribed, and establish medication management treatment with an outpatient provider after discharge. Patient reports he understands the information that has been provided to him, and he understands, accepts, and agrees to psychotropic medications. Patient describes internal protective factors as the coping skills he has learned while hospitalized here, and he plans to continue to practice these coping skills after discharge. LABS AND RADIOLOGY STUDIES: There were no pending labs or studies at time. ADVANCED DIRECTIVES: There were no advance directives on file, and the patient was full code during this hospitalization. The following psychotropic medication treatment informed consent and recommendations were provided to the patient at time of discharge. Patient reports he understands, accepts, and agrees to the information that has been provided. PSYCHOTROPIC MEDICATION TREATMENT INFORMED CONSENT and RECOMMENDATIONS: Review nature of condition, diagnosis, and prognosis. Review nature and purpose of psychotropic medication treatment. Review type of psychotropic medications being prescribed. Review risk and benefits of psychotropic medication treatment. Review probable length of time will need to take medications. Review risk and benefits of not undergoing psychotropic medication treatment. Review alternative treatments to psychotropic medications. Review psychotropic medications contraindications, side effects, and importance of reporting any side effects to a psychiatric provider, primary care provider, or other health intensive care medicine specialist. Review importance of her asking a psychiatric provider or primary care provider any questions or problems concerning the psychotropic medications. Review safety plan and the importance to contact [facility] or [facility] , or go to the nearest emergency room, if ever a danger to yourself/others, or unable to care for yourself. Recommend upon discharge to establish routine medication management treatment with a psychiatric provider, establish routine therapy appointments, and follow-up with a primary care provider. Verify patient understands, accepts, and agrees to the information that has been provided. /[id number]/[id number]
[2018-07-28] MEDS ORDERED: PALIPERIDONE PALMITATE 156 MG/ML SYR IM ONE ×2 (09:00)
[2018-07-28] MEDS: NICOTINE POLACRILEX 2 MG GUM B PRN (09:30)
[2018-07-28] MEDS: NICOTINE 21 MG/24 HR PATCH TD SCH (10:05)
[2018-08-01] MEDS ORDERED: PALIPERIDONE PALMITATE 156 MG/ML SYR IM ONE (09:00)
== END 2018-07-28 10:30 | disposition home or self-care (01) | DRG 885 ==
LOC: BBEH 19:20
PROVIDERS: ADMIT Psychiatry & Neurology Psychiatry; ATTEND Psychiatry & Neurology Psychiatry
DX: F20.9 Schizophrenia, unspecified (principal); F12.959 Cannabis use, unspecified with psychotic disorder, unspecified; F17.200 Nicotine dependence, unspecified, uncomplicated; T43.506A Underdosing of unspecified antipsychotics and neuroleptics, initial encounter; Z59.0 Homelessness; Z23 Encounter for immunization; I10 Essential (primary) hypertension
CPT/HCPCS: 80305; G0008; G0009; G0480; J0401; J2426